=== PATIENT | male | born 1980 | race Caucasian/White ===

== ENCOUNTER 2023-01-29 15:26 | Outpatient (CLI) | payer BC, SELFPAY ==
--- NOTE | 2023-01-29 16:00 | CRLHL7_ITS ---
For Patients: As a result of the Century Cures Act, medical imaging exams and procedure reports are released immediately into your electronic medical record. You may view this report before your referring provider. If you have questions, please contact your health care provider. CLINICAL HISTORY: MALIGNANT NEOPLASM OF TONSIL, PET SCAN FOLLOW UP COMPARISON: CT-PET 01/21/2023 TECHNIQUE: Breaux scale and color Doppler images were acquired of the kidneys and urinary bladder. FINDINGS: There is a complex cystic structure arising from the inferior pole of the right kidney laterally measuring 2.7 x 2.0 x 2.5 cm. This correlates with the structure visualized on the CT-PET scan. Cystic areas are present along with soft tissue septations which may be somewhat vascular. No hydronephrosis. Left kidney normal. The right kidney measures 11.5cm in length and the left kidney measures 13.9cm in length. The renal cortex appears of normal thickness. The urinary bladder appears normal. Color Doppler images reveal a normal appearance of both ureteral jets. There is no evidence of bladder calculi or diverticula. IMPRESSION: Cystic mass with internal slightly vascular mildly thickened septa arising from the lateral aspect of the right kidney inferior pole corresponding to the CT-PET exam, measuring 2.7 x 2.0 x 2.5 cm. 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 The large majority of these masses are benign, however, further characterization with dedicated renal MRI recommended prior to consideration of treatment for the head and neck malignancy. Dictated by Drew Briones MD @ 01/30/2023 9:48:22 AM (Electronically Signed)
--- NOTE | 2023-01-29 16:00 | CRLHL7_ITS ---
For Patients: As a result of the Century Cures Act, medical imaging exams and procedure reports are released immediately into your electronic medical record. You may view this report before your referring provider. If you have questions, please contact your health care provider. INDICATION: MALIGNANT NEOPLASM OF TONSIL, PET SCAN FOLLOW UP COMPARISON: CT-PET 01/21/2023 TECHNIQUE: Breaux scale and color Doppler images were acquired of the thyroid gland. FINDINGS: The thyroid gland demonstrates normal uniform echogenicity and has a smooth outer contour. The right lobe measures 5.7 x 1.6 x 2.1 cm and the left lobe measures 6.2 x 2.0 x 2.2 cm in size. The isthmus measures 2 millimeters. There is a solid hypoechoic macro lobular nodule within the left thyroid lobe corresponding to the CT PET findings. This measures 2.0 x 1.3 x 1.6 cm. Internal vascularity noted within this nodule. There is no evidence of cervical lymphadenopathy or parathyroid mass. IMPRESSION: 2.0 cm TR 4 left thyroid lobe nodule corresponding to the increased uptake on CT-PET scan. FNA recommended. Dictated by Drew Briones MD @ 01/30/2023 9:40:10 AM (Electronically Signed)
== END 2023-01-29 15:27 | disposition home or self-care (01) ==
PROVIDERS: Visit Provider Otolaryngology
DX: C09.9 Malignant neoplasm of tonsil, unspecified (principal); N28.89 Other specified disorders of kidney and ureter
CPT/HCPCS: 76536; 76775

== ENCOUNTER 2024-11-25 15:35 | Outpatient (CLI) | payer BC, SELFPAY | END 2024-11-25 15:36 | disposition home or self-care (01) | PROVIDERS: PCP Internal Medicine; Visit Provider Internal Medicine | DX: Z13.228 Encounter for screening for other metabolic disorders (principal); Z13.6 Encounter for screening for cardiovascular disorders | CPT/HCPCS: 80053; 80061 ==